=== PATIENT | female | born 2000 | race Two or more races ===

== ENCOUNTER 2021-01-30 22:53 | Emergency (ER) | payer SELFPAY ==
[~2021-01-30] VITALS: Ht 160 cm; Wt 70.0 kg
[2021-01-30] MEDS ORDERED: PLEASE ENTER ALLERGIES MC SCH (23:45)
[2021-01-30] MEDS ORDERED: IBUPROFEN 600 MG TABLET ONE (23:51)
[2021-01-30] MEDS ORDERED: LORazepam 1MG TABLET ONE (23:52)
[2021-01-31] MEDS ORDERED: IBUPROFEN 600 MG TABLET PO ONE
[2021-01-31] MEDS ORDERED: LORazepam 1MG TABLET PO ONE
[2021-01-31 00:24] LABS: BASOPHILS % (AUTO) 0 % (0-1); EOSINOPHILS % (AUTO) 1 % (1-7); LYMPHOCYTES % (AUTO) 37 % (22-44); MEAN CORPUSCULAR HEMOGLOBIN 31.8 pg (27.0-34.8); MEAN PLATELET VOLUME 9.2 fL (7.4-10.4); MONOCYTES % (AUTO) 10 % (2-9); NEUTROPHILS % (AUTO) 52 % (42-75); PLATELET COUNT 251 x10^3/uL (130-400); RED BLOOD COUNT 4.13 x10^6/uL (3.82-5.3); RED CELL DISTRIBUTION WIDTH 13.4 % (9.6-15.2)
[2021-01-31 00:35] LABS: ALANINE AMINOTRANSFERASE 17 U/L (12-78); ALBUMIN 3.5 g/dL (3.4-5.0); ANION GAP 4 mmol/L (5-15); CALCIUM 8.1 mg/dL (8.5-10.1); CHLORIDE 109 mmol/L (98-107); CREATININE 0.57 mg/dL (0.55-1.02)
[2021-01-31 00:39] LABS: ALKALINE PHOSPHATASE 106 U/L (45-117); BILIRUBIN,TOTAL 0.4 mg/dL (0.2-1.0); TOTAL PROTEIN 6.9 g/dL (6.4-8.2); TROPONIN I < 0.015 ng/mL (0.000-0.045)
[2021-01-31 00:42] VITALS: BP 112/71
--- NOTE | 2021-01-31 00:43 | NUR ---
NORMAL CT. C SPINE IMMOBILIZER REMOVED
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
--- NOTE | 2021-01-31 01:33 | NUR ---
PT RESTING ON GURNEY. RESPIRATIONS EVEN AND UNLABORED. DENIES PAIN
== END 2021-01-31 02:36 | disposition home or self-care (01) ==
LOC: ED 01-31 02:00
DX: S16.1XXA Strain of muscle, fascia and tendon at neck level, initial encounter (principal); R07.89 Other chest pain; M54.5 Low back pain; W18.30XA Fall on same level, unspecified, initial encounter; Y93.89 Activity, other specified; Y92.828 Other wilderness area as the place of occurrence of the external cause; Y99.8 Other external cause status
CPT/HCPCS: 36415; 71045; 72110; 72125; 80053; 84484; 84703; 85025; 93005; 99285

== ENCOUNTER 2021-02-18 21:37 | Emergency (ER) | payer SELFPAY ==
[~2021-02-18] VITALS: Ht 162.6 cm; Wt 81.0 kg
[2021-02-18 21:43] VITALS: BP 139/100
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
[2021-02-18] MEDS ORDERED: KETOROLAC 60 MG/2 ML IM ONE (22:30)
[2021-02-18] MEDS ORDERED: LORazepam 1MG TABLET PO ONE (22:30)
[2021-02-18 22:40] LABS: BASOPHILS % (AUTO) 0 % (0-1); EOSINOPHILS % (AUTO) 1 % (1-7); LYMPHOCYTES % (AUTO) 30 % (22-44); MEAN CORPUSCULAR HEMOGLOBIN 32.2 pg (27.0-34.8); MEAN CORPUSCULAR HGB CONC 34.3 g/dL (32.4-35.8); MEAN PLATELET VOLUME 8.9 fL (7.4-10.4); MONOCYTES % (AUTO) 8 % (2-9); NEUTROPHILS % (AUTO) 61 % (42-75); PLATELET COUNT 257 x10^3/uL (130-400); RED BLOOD COUNT 4.21 x10^6/uL (3.82-5.3); RED CELL DISTRIBUTION WIDTH 13.1 % (9.6-15.2)
[2021-02-18 22:54] LABS: ALANINE AMINOTRANSFERASE 18 U/L (12-78); ALBUMIN 3.7 g/dL (3.4-5.0); ANION GAP 5 mmol/L (5-15); CALCIUM 8.8 mg/dL (8.5-10.1); CHLORIDE 107 mmol/L (98-107); CREATININE 0.57 mg/dL (0.55-1.02)
[2021-02-18] MEDS ORDERED: KETOROLAC 60 MG/2 ML ONE (22:55)
[2021-02-18] MEDS ORDERED: LORazepam 1MG TABLET ONE (22:55)
[2021-02-18 22:58] LABS: ALKALINE PHOSPHATASE 118 U/L (45-117); BILIRUBIN,TOTAL 0.6 mg/dL (0.2-1.0); TOTAL PROTEIN 7.2 g/dL (6.4-8.2); TROPONIN I < 0.015 ng/mL (0.000-0.045)
--- NOTE | 2021-02-18 23:10 | NUR ---
Updated on results, meds given, denies further needs. Call pugh and personal items within reach. Family/friends at bedside
--- NOTE | 2021-02-19 01:09 | NUR ---
Patient/Caregiver given discharge instructions and they have confirmed that they understand the instructions. Patient ambulatory with steady gait. NAD, all questions answered appropriately, denies additional needs at this time. No personal belongings left in room after discharge.
== END 2021-02-19 01:11 | disposition home or self-care (01) ==
LOC: ED 22:00
DX: R07.89 Other chest pain (principal); F41.1 Generalized anxiety disorder; F17.200 Nicotine dependence, unspecified, uncomplicated
CPT/HCPCS: 36415; 71046; 80053; 83880; 84484; 84703; 85025; 93005; 96372; 99285; J1885